=== PATIENT | female | born 1950 | race Caucasian/White ===

== ENCOUNTER → 2017-05-06 | Day surgery (SDC) | payer OTHER ==
[~2017-05-06] MED LIST: ALLE30TA3 PO; IBUP400T20 PO; LACTATED RINGER'S 1000 ML INJ 1,000 ML ONE; MONT4CHW2 PO; PROPOFOL 200 MG/20 ML AMP IV ONE; PROT40TA PO
--- NOTE | 2017-05-06 13:02 | GIPROC ---
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 TOPICAL ANESTHETIC: CONSENT: The patient understands the risks and benefits of the procedure and understands that these risks include, but are not limited to: sedation, allergic reaction, infection, perforation and/or bleeding. Alternative means of evaluation and treatment include, among others: physical exam, x-rays, and/or surgical intervention. The patient elects to proceed with this endoscopic procedure. medical equipment was checked for proper function. Hand hygiene and appropriate measures for infection prevention was taken. After the risks, benefits and alternatives of the procedure were thoroughly explained, Informed consent was verified, confirmed and timeout was successfully executed by the treatment team. The patient was anesthetized with topical anesthesia and the EG-[id number] ([id number]) and EC-[id number] ([id number]) endoscope was introduced through the mouth and advanced to the second portion of the duodenum. Retroflexed views revealed no abnormalities The gastroscope was then slowly withdrawn and removed. 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 The length of circumferential Thomas's was 3cm ([place] C3) and the length of Maximal extent of Thomas's was 4cm ([place] M4). There was no nodular mucosa noted in the Thomas's segment. Multiple biopsies were performed using cold forceps. Sample sent for histology. ADVERSE EVENTS: There were no complications. IMPRESSIONS: 1. 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 Retroflexed views revealed no abnormalities RECOMMENDATIONS: 1. Anti-reflux regimen 2. Continue PPI 3. Avoid NSAIDS PATIENT CONDITION: stable DISPOSITION: Home REPEAT EXAM: Return 6 months EGD pending biopsy results Amauri Cardoza MD eSigned: Amauri Cardoza MD 05/06/2017 1:01 PM cc: Yahaira Cordero
== END | disposition home or self-care (01) ==
LOC: ESDC 10:51
PROVIDERS: ATTEND Internal Medicine Gastroenterology
DX: K22.710 Barrett's esophagus with low grade dysplasia (principal)
CPT/HCPCS: 00740; 43239; 88305; J3010; J7120